=== PATIENT | male | born 1995 | race Caucasian/White ===

== ENCOUNTER 2016-08-17 18:45 | Emergency (ER) | payer MEDICAID, OTHER ==
[~2016-08-17] VITALS: Ht 190.5 cm; Wt 72.6 kg
[~2016-08-17 18:45] MED LIST: IBP800T PO; IBUP-15 PO; KETO10TA PO; TAMS0.4C98 PO
--- NOTE | 2016-08-17 20:01 | Diagnostic Imaging Report ---
INDICATION: Left shoulder pain 3 views of the left shoulder show no fracture, dislocation or other acute abnormalities. IMPRESSION: Negative left shoulder Dictated by: Dictated on workstation # [id number]
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
[2016-08-17] MEDS ORDERED: CYCL10TA9 PO (21:32)
== END 2016-08-17 21:39 | disposition home or self-care (01) ==
LOC: EDUNIT# 18:45 → ER 18:47
DX: S46.912A Strain of unspecified muscle, fascia and tendon at shoulder and upper arm level, left arm, initial encounter (principal); S10.91XA Abrasion of unspecified part of neck, initial encounter; S80.212A Abrasion, left knee, initial encounter; V43.52XA Car driver injured in collision with other type car in traffic accident, initial encounter; Y92.411 Interstate highway as the place of occurrence of the external cause; Y99.8 Other external cause status
CPT/HCPCS: 73030; 99282

== ENCOUNTER 2017-01-22 10:02 | Emergency (ER) | payer SELFPAY ==
[~2017-01-22] VITALS: Ht 190.5 cm; Wt 72.6 kg
[~2017-01-22 10:02] MED LIST changes: +CYCL10TA9 PO
[2017-01-22] MEDS ORDERED: CYCL5TAB PO (10:55)
--- NOTE | 2017-01-22 10:56 | ED Upper Extremity ---
General Chief Complaint: Upper Extremity Stated Complaint: RT CHEST MUSCLE PULL Nursing Triage Note: AMB TO ED REPORTS THAT HE WOKE UP SUN AM WITH R SHOULDER PAIN NO INJURY WORSE TODAY. Nursing Sepsis Screen: No Definite Risk Source: patient Exam Limitations: no limitations History of Present Illness Time seen by provider: 10:53 Initial Comments To ER with pain to the anterior and medial aspect of the right shoulder. This began 2 days ago without any known injury. 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 Pain is worsened by lifting things. Onset: other (2 days ago) Severity: moderate Pain/Injury Location: right shoulder Allergies and Home Medications Allergies Coded Allergies: No Known Drug Allergies (Unverified , 01/21/11) Home Medications Cyclobenzaprine HCl 10 Mg Tablet, 10 MG PO Q8H PRN for SPASMS, #10 Ref 0 Prescribed by: ANNETTE JI on 08/17/162131 Ketorolac Tromethamine 10 Mg Tablet, 10 MG PO Q6H PRN for FLANK PAIN, #20 Ref 0 Prescribed by: ANEUDY ARMENDARIZ on 11/26/15 0308 Tamsulosin HCl 0.4 Mg Cap, 0.4 MG PO DAILY, #10 Ref 0 Prescribed by: ANEUDY ARMENDARIZ on 11/26/15 0308 Constitutional: see HPI EENTM: see HPI Respiratory: no symptoms reported Cardiovascular: no symptoms reported Genitourinary: no symptoms reported Musculoskeletal: see HPI Skin: no symptoms reported Psychiatric/Neurological: No Symptoms Reported Past Exwggdc-Ufpdxy-Xfppwr Hx Patient Social History Alcohol Use: Denies Use Recreational Drug Use: No Smoking Status: Never a Smoker Recent Foreign Travel: No Contact w/Someone Who Travel: No Recent Infectious Disease Expo: No Recent Hopitalizations: No Immunizations Up To Date Tetanus Booster (TDap): Less than 5yrs Seasonal Allergies Seasonal Allergies: No Surgeries History of Surgeries: No Respiratory History of Respiratory Disorde: No Cardiovascular History of Cardiac Disorders: No Neurological History of Neurological Disord: No Reproductive System Hx Reproductive Disorders: No Sexually Transmitted Disease: No HIV/AIDS: No Gastrointestinal History of Gastrointestinal Di: No Musculoskeletal History of Musculoskeletal Dis: No Endocrine History of Endocrine Disorders: No Cancer History of Cancer: No Psychosocial History of Psychiatric Problem: No Integumentary History of Skin or Integumenta: No Blood Transfusions History of Blood Disorders: No Family Medical History Significant Family History: No Pertinent Family Hx Physical Exam Vital Signs Vital Sign - Last 12Hours 01/22/17 10:26 Temp 99.0 Pulse 74 Resp 18 Pulse Ox 99 O2 Delivery Room Air Capillary Refill : Less Than 3 Seconds General Appearance: WD/WN, no apparent distress HEENT: PERRL/EOMI, normal ENT inspection Neck: non-tender, full range of motion Respiratory: normal breath sounds, no respiratory distress, no accessory muscle use Gastrointestinal: normal bowel sounds, non tender, soft Shoulder: normal inspection, No asymmetry, No bone tenderness, No deformity, No ecchymosis, limited ROM, pain, soft tissue tenderness, No swelling Elbow/Forearm: normal inspection, non-tender Wrist: Yes normal inspection, Yes non-tender Neurologic/Psychiatric: alert, normal mood/affect, oriented x 3 Skin: normal color, warm/dry Progress/Results/Core Measures Results/Orders Vital Signs/I&O Vital Sign - Last 12Hours 01/22/17 10:26 Temp 99.0 Pulse 74 Resp 18 B/P (MAP) Pulse Ox 99 O2 Delivery Room Air Departure Impression Impression: Primary Impression: Pectoralis muscle strain Disposition: 01 HOME, SELF-CARE Condition: Stable Departure-Patient Inst. Decision time for Depature: 10:54 Referrals: NO,LOCAL PHYSICIAN (PCP/Family) Primary Care Physician Patient Instructions: Muscle Strain (DC) Add. Discharge Instructions: 1. Return to ER for any concerns 2. Follow-up with your doctor this week 3. No lifting with right arm for one week. Continue to use ibuprofen or naproxen [id number] in addition to the muscle relaxers that I have prescribed All discharge instructions reviewed with patient and/or family. Voiced understanding. Scripts Cyclobenzaprine HCl (Cyclobenzaprine HCl) 5 Mg Tablet 5 MG PO TID Y for PAIN-MODERATE TO SEVERE, #10 TAB Prov: ADAM GARNETT APRN 01/22/17 ADAM GARNETT APRN Jan 22, 2017 10:55
[2017-01-22 11:05] VITALS: BP 111/76
== END 2017-01-22 11:04 | disposition home or self-care (01) ==
LOC: EDUNIT# 10:02 → ER 10:04
DX: S46.911A Strain of unspecified muscle, fascia and tendon at shoulder and upper arm level, right arm, initial encounter (principal); X50.0XXA Overexertion from strenuous movement or load, initial encounter; Y92.69 Other specified industrial and construction area as the place of occurrence of the external cause
CPT/HCPCS: 99282

== ENCOUNTER 2017-04-10 09:37 | Emergency (ER) | payer SELFPAY ==
[~2017-04-10] VITALS: Ht 190.5 cm; Wt 72.6 kg
[~2017-04-10 09:37] MED LIST changes: +CYCL5TAB PO
--- NOTE | 2017-04-10 10:14 | ED GI ---
General Chief Complaint: Abdominal/GI Problems Stated Complaint: ABD CRAMPING,N/V Nursing Triage Note: ARRIVED VIA AMB TO ROOM 09. COMPLAINS OF ABD CRAMPING N/V/D STARTING YESTERDAY. STATES HE FEELS A LITTLE BETTER TODAY AND WAS ABLE TO KEEP A FEW BITES OF BREAD DOWN. Sepsis Screen: No Definite Risk Source of Information: Patient Exam Limitations: No Limitations History of Present Illness Time Seen By Provider: 10:13 Initial Comments To ER with reports of abdominal cramping nausea vomiting diarrhea that began yesterday. Symptoms are little bit better today. No fevers or chills. No abdominal pains. Timing/Duration: 1-2 Days Severity/Quality: Cramping Location: Generalized Abdomen Radiation: No Radiation Activities at Onset: None Allergies and Home Medications Allergies Coded Allergies: No Known Drug Allergies (Unverified , 01/21/11) Review of Systems Constitutional: see HPI EENTM: No Symptoms Reported Respiratory: No Symptoms Reported Cardiovascular: No Symptoms Reported Gastrointestinal: See HPI, Diarrhea, Nausea, Vomiting Genitourinary: No Symptoms Reported Musculoskeletal: no symptoms reported Skin: no symptoms reported Psychiatric/Neurological: No Symptoms Reported Endocrine: No Symptoms Reported Past Cnayhds-Afkzmf-Eyqjlm Hx Patient Social History Alcohol Use: Denies Use Recreational Drug Use: No Smoking Status: Never a Smoker Recent Foreign Travel: No Contact w/Someone Who Travel: No Recent Infectious Disease Expo: No Recent Hopitalizations: No Immunizations Up To Date Tetanus Booster (TDap): Less than 5yrs Seasonal Allergies Seasonal Allergies: No Surgeries History of Surgeries: No Respiratory History of Respiratory Disorde: No Cardiovascular History of Cardiac Disorders: No Neurological History of Neurological Disord: No Reproductive System Hx Reproductive Disorders: No Sexually Transmitted Disease: No HIV/AIDS: No Genitourinary History of Genitourinary Disor: No Gastrointestinal History of Gastrointestinal Di: No Musculoskeletal History of Musculoskeletal Dis: No Endocrine History of Endocrine Disorders: No HEENT History of HEENT Disorders: No Cancer History of Cancer: No Psychosocial History of Psychiatric Problem: No Integumentary History of Skin or Integumenta: No Blood Transfusions History of Blood Disorders: No Family Medical History Significant Family History: No Pertinent Family Hx Physical Exam Vital Signs VS - Last 72 Hours, by Label 04/10/17 09:45 Temp 98.7 Pulse 72 Resp 18 B/P (MAP) 120/72 Pulse Ox 98 Capillary Refill : Less Than 3 Seconds General Appearance: WD/WN, no apparent distress HEENT: PERRL/EOMI, normal ENT inspection Neck: non-tender, full range of motion Respiratory: no respiratory distress, no accessory muscle use Cardiovascular: regular rate, rhythm, no murmur Gastrointestinal: normal bowel sounds, non tender, soft Extremities: normal range of motion, non-tender Neurologic/Psychiatric: alert, normal mood/affect, oriented x 3 Skin: normal color, warm/dry Progress/Results/Core Measures Results/Orders Lab Results Laboratory Tests Test 04/10/17 10:01 04/10/17 10:05 04/10/17 11:43 Range/Units C-Reactive Protein High Sensitivity 3.90 H 0.00-0.50 MG/DL White Blood Count 14.8 H 4.3-11.0 10^3/uL Red Blood Count 4.95 4.35-5.85 10^6/uL Hemoglobin 15.9 13.3-17.7 G/DL Hematocrit 45 40-54 % Mean Corpuscular Volume 91 80-99 FL Mean Corpuscular Hemoglobin 32 25-34 PG Mean Corpuscular Hemoglobin Concent 35 32-36 G/DL Red Cell Distribution Width 12.1 10.0-14.5 % Platelet Count 230 130-400 10^3/uL Mean Platelet Volume 9.6 7.4-10.4 FL Neutrophils (%) (Auto) 86 H 42-75 % Lymphocytes (%) (Auto) 5 L 12-44 % Monocytes (%) (Auto) 9 0-12 % Eosinophils (%) (Auto) 0 0-10 % Basophils (%) (Auto) 0 0-10 % Neutrophils # (Auto) 12.7 H 1.8-7.8 X 10^3 Lymphocytes # (Auto) 0.8 L 1.0-4.0 X 10^3 Monocytes # (Auto) 1.3 H 0.0-1.0 X 10^3 Eosinophils # (Auto) 0.0 0.0-0.3 10^3/uL Basophils # (Auto) 0.0 0.0-0.1 10^3/uL Neutrophils % (Manual) 81 % Lymphocytes % (Manual) 7 % Monocytes % (Manual) 11 % Eosinophils % (Manual) 0 % Basophils % (Manual) 0 % Band Neutrophils 1 % Blood Morphology Comment NORMAL Sodium Level 140 135-145 MMOL/L Potassium Level 3.8 3.6-5.0 MMOL/L Chloride Level 102 98-107 MMOL/L Carbon Dioxide Level 27 21-32 MMOL/L Anion Gap 11 5-14 MMOL/L Blood Urea Nitrogen 15 7-18 MG/DL Creatinine 0.90 0.60-1.30 MG/DL Estimat Glomerular Filtration Rate > 60 BUN/Creatinine Ratio 17 Glucose Level 116 H 70-105 MG/DL Calcium Level 9.2 8.5-10.1 MG/DL Total Bilirubin 1.3 H 0.1-1.0 MG/DL Aspartate Amino Transf (AST/SGOT) 19 5-34 U/L Alanine Aminotransferase (ALT/SGPT) 20 0-55 U/L Alkaline Phosphatase 64 40-136 U/L Total Protein 7.2 6.4-8.2 GM/DL Albumin 4.3 3.2-4.5 GM/DL Lipase 12 8-78 U/L Urine Color YELLOW Urine Clarity CLEAR Urine pH 5 5-9 Urine Specific Vendor 1.015 L 1.016-1.022 Urine Protein 2+ H NEGATIVE Urine Glucose (UA) NEGATIVE NEGATIVE Urine Ketones NEGATIVE NEGATIVE Urine Nitrite NEGATIVE NEGATIVE Urine Bilirubin 1+ H NEGATIVE Urine Urobilinogen NORMAL NORMAL MG/DL Urine Leukocyte Esterase NEGATIVE NEGATIVE Urine RBC (Auto) NEGATIVE NEGATIVE Urine RBC NONE /HPF Urine WBC NONE /HPF Urine Squamous Epithelial Cells NONE /HPF Urine Crystals NONE /LPF Urine Bacteria NEGATIVE /HPF Urine Casts NONE /LPF Urine Mucus NEGATIVE /LPF Urine Culture Indicated NO My Orders Orders - ADAM GARNETT [employer] ATTENDANT Cbc With Automated Diff (04/10/17 10:09) Comprehensive Metabolic Panel (04/10/17 10:09) Lipase (04/10/17 10:09) Ua Culture If Indicated (04/10/17 10:09) Ns Iv 1000 Ml (Sodium Chloride 0.9%) (04/10/17 10:15) Manual Differential (04/10/17 10:05) Hs C Reactive Protein (04/10/17 10:27) Ct Abdomen/Pelvis W (04/10/17 10:51) Iohexol Injection (Omnipaque 350 Mg/Ml 1 (04/10/17 11:00) Ns (Ivpb) (Sodium Chloride 0.9% Ivpb Bag (04/10/17 11:00) Medications Given in ED Current Medications Medications Dose Ordered Sig/Emili Route Start Time Stop Time Status Last Admin Dose Admin Iohexol 100 ml ONCE ONCE IV 04/10/17 11:00 04/10/17 11:01 DC 04/10/17 11:08 100 ML Sodium Chloride 100 ml ONCE ONCE IV 04/10/17 11:00 04/10/17 11:01 DC 04/10/17 11:08 80 ML Vital Signs/I&O Vital Sign - Last 12Hours 04/10/17 09:45 Temp 98.7 Pulse 72 Resp 18 B/P (MAP) 120/72 Pulse Ox 98 Blood Pressure Mean: 88 Diagnostic Imaging Diagonstic Imaging: CT Comments NAME: MILDRED BASS MED REC#: [id number] PT STATUS: REG ER : 1995 PHYSICIAN: ADAM GARNETT APRN ADMIT DATE: 04/10/17/ER Draft Date of Exam:04/10/17 CT ABDOMEN/PELVIS W PROCEDURE: CT abdomen and pelvis with contrast. TECHNIQUE: Multiple contiguous axial images were obtained through the abdomen and pelvis after administration of intravenous contrast. INDICATION: Nausea, vomiting and diarrhea. 100 mL of Omnipaque 350 is administered intravenously. FINDINGS: The lung bases are clear. The liver, the gallbladder, the adrenal glands, the and the pancreas appear unremarkable. The spleen is borderline enlarged measuring 13 cm in length. The kidneys have symmetric contrast enhancement. No hydronephrosis. The abdominal aorta is normal in caliber. No para-aortic significantly enlarged lymph node is seen. There is a small amount of free fluid in the pelvis. No bowel obstruction. The appendix is normal. There is slight engorgement in the mesenteric vessels and mild stranding of the fat around ileal loops. The osseous structures demonstrate sclerotic focus in the right femoral head measuring 7 mm in size similar to the previous exam, likely an incidental bony island. IMPRESSION: Small amount of free fluid in the pelvis, engorgement of mesenteric vessels and stranding in the fat adjacent to ileal loops may relate to ileitis. Dictated on workstation # [id number] Dict: 04/10/17 1121 Trans: 04/10/17 1159 BETHANY [id number] Interpreted by: ORIN SEBASTIAN MD Electronically signed by: Departure Impression Impression: Primary Impression: Ileitis Disposition: 01 HOME, SELF-CARE Condition: Stable Departure-Patient Inst. Decision time for Depature: 11:52 Referrals: NO,LOCAL PHYSICIAN (PCP/Family) Primary Care Physician Patient Instructions: Acute Abdomen (Belly Pain), Adult (DC) Add. Discharge Instructions: 1. Drink plenty of fluids 2. Return to ER for any worsening pain, fevers, or bloody diarrhea. 3. Follow up with your doctor later this week. If you do not have a physician or list has been provided for you. All discharge instructions reviewed with patient and/or family. Voiced understanding. Work/School Note: Local Medical Staff Listing, Work Release Form Date Seen in the Emergency Department: Apr 10, 2017 Return to Work: Apr 11, 2017 ADAM GARNETT APRN Apr 10, 2017 10:14
[2017-04-10] MEDS ORDERED: NS IV 1000 ML 1,000 ML IV SCH (10:15)
[2017-04-10 10:19] LABS: BASOPHILS % (AUTO) 0 % (0-10); EOSINOPHILS % (AUTO) 0 % (0-10); LYMPHOCYTES # (AUTO) 0.8 X 10^3 (1.0-4.0); LYMPHOCYTES % (AUTO) 5 % (12-44); MEAN CORPUSCULAR HEMOGLOBIN 32 PG (25-34); MEAN CORPUSCULAR HGB CONC 35 G/DL (32-36); MEAN CORPUSCULAR VOLUME 91 FL (80-99); MEAN PLATELET VOLUME 9.6 FL (7.4-10.4); MONOCYTES # (AUTO) 1.3 X 10^3 (0.0-1.0); MONOCYTES % (AUTO) 9 % (0-12); NEUTROPHILS # (AUTO) 12.7 X 10^3 (1.8-7.8); NEUTROPHILS % (AUTO) 86 % (42-75); PLATELET COUNT 230 10^3/uL (130-400); RED BLOOD COUNT 4.95 10^6/uL (4.35-5.85); RED CELL DISTRIBUTION WIDTH 12.1 % (10.0-14.5); WHITE BLOOD COUNT 14.8 10^3/uL (4.3-11.0)
[2017-04-10 10:31] LABS: ALANINE AMINOTRANSFERASE 20 U/L (0-55); ALBUMIN 4.3 GM/DL (3.2-4.5); ANION GAP 11 MMOL/L (5-14); ASPARTATE AMINO TRANSFERASE 19 U/L (5-34); BILIRUBIN,TOTAL 1.3 MG/DL (0.1-1.0); BLOOD UREA NITROGEN 15 MG/DL (7-18); BUN/CREATININE RATIO 17; CALCIUM 9.2 MG/DL (8.5-10.1); CARBON DIOXIDE 27 MMOL/L (21-32); CHLORIDE 102 MMOL/L (98-107); GFR ESTIMATED > 60; GLUCOSE 116 MG/DL (70-105); LIPASE 12 U/L (8-78); POTASSIUM 3.8 MMOL/L (3.6-5.0); SODIUM 140 MMOL/L (135-145); TOTAL PROTEIN 7.2 GM/DL (6.4-8.2)
[2017-04-10 10:52] LABS: BAND NEUTROPHILS 1 %; BASOPHILS % (MANUAL) 0 %; EOSINOPHILS % (MANUAL) 0 %; LYMPHOCYTES % (MANUAL) 7 %; NEUTROPHILS % (MANUAL) 81 %
[2017-04-10] MEDS ORDERED: NS 100 ML (IVPB) BAG IV ONE (11:00)
[2017-04-10] MEDS ORDERED: IOHEXOL 350 MG/ML 100 ML (OMNIPAQUE 350) VIAL IV ONE (11:00)
[2017-04-10 11:50] LABS: KETONES,URINE NEGATIVE (NEGATIVE); LEUKOCYTE ESTERASE ,URINE NEGATIVE (NEGATIVE); NITRITE,URINE NEGATIVE (NEGATIVE); PH,URINE 5 (5-9); PROTEIN,URINE 2+ (NEGATIVE); UROBILINOGEN,URINE NORMAL (NORMAL)
--- NOTE | 2017-04-10 12:00 | Diagnostic Imaging Report ---
PROCEDURE: CT abdomen and pelvis with contrast. TECHNIQUE: Multiple contiguous axial images were obtained through the abdomen and pelvis after administration of intravenous contrast. INDICATION: Nausea, vomiting and diarrhea. 100 mL of Omnipaque 350 is administered intravenously. FINDINGS: The lung bases are clear. The liver, the gallbladder, the adrenal glands, the and the pancreas appear unremarkable. The spleen is borderline enlarged measuring 13 cm in length. The kidneys have symmetric contrast enhancement. No hydronephrosis. The abdominal aorta is normal in caliber. No para-aortic significantly enlarged lymph node is seen. There is a small amount of free fluid in the pelvis. No bowel obstruction. The appendix is normal. There is slight engorgement in the mesenteric vessels and mild stranding of the fat around ileal loops. The osseous structures demonstrate sclerotic focus in the right femoral head measuring 7 mm in size similar to the previous exam, likely an incidental bony island. IMPRESSION: Small amount of free fluid in the pelvis, engorgement of mesenteric vessels and stranding in the fat adjacent to ileal loops may relate to ileitis. Dictated by: Dictated on workstation # [id number]
[2017-04-10 12:06] LABS: BILIRUBIN,URINE 1+ (NEGATIVE)
[2017-04-10 12:20] VITALS: BP 120/76
== END 2017-04-10 12:20 | disposition home or self-care (01) ==
LOC: EDUNIT# 09:37 → ER 09:39
DX: K52.9 Noninfective gastroenteritis and colitis, unspecified (principal)
CPT/HCPCS: 36415; 74177; 80053; 81000; 83690; 85007; 85027; 86141